=== PATIENT | male | born 1975 | race Caucasian/White ===

== ENCOUNTER 2017-06-11 02:13 | Emergency (ER) | payer BC, OTHER ==
--- NOTE | 2017-06-11 03:20 | EDM.PDOC ---
ED HPI GENERAL MEDICAL PROBLEM - General Chief Complaint: Respiratory Problem Stated Complaint: congested Time Seen by Provider: 06/11/17 03:20 Source of Information: Reports: Patient History Limitations: Reports: No Limitations - History of Present Illness INITIAL COMMENTS - FREE TEXT/NARRATIVE: The patient states that he has had fatigue, chest congestion, and nasal congestion for the past 2 days. His rhinorrhea is clear, occasionally yellow. He has an occasional dry cough. No recent fever. No recent nausea, vomiting, constipation, diarrhea, or urinary symptoms. No recent chest pain, palpitations , or dyspnea. No recent sore throat. He states that his appetite has been good. He states that he has been taking aspirin and/or Tylenol. The patient did receive an influenza vaccine this past fall. The patient's PCP is Dr. Guerrero. - Related Data Home Meds: Home Meds . [Unable to Verify Home Med List] 06/11/17 [History] Past Medical History HEENT History: Reports: Impaired Vision Other HEENT History: Wears glasses Cardiovascular History: Reports: High Cholesterol, Hypertension Endocrine/Metabolic History: Reports: Diabetes, Type II, Obesity/BMI 30+ - Past Surgical History HEENT Surgical History: Reports: Oral Surgery ([place] teeth extraction) Social & Family History - Tobacco Use Smoking Status *Q: Current Every Day Smoker Tobacco Use Within Last Twelve Months: Smokeless Tobacco (Chews 1.5 cans per week) Years of Tobacco use: 28 Packs/Tins Daily: 0.1 - Alcohol Use Alcohol Use History: Yes Alcohol Use Frequency: Socially - Recreational Drug Use Recreational Drug Use: No - Living Situation & Occupation Living situation: Reports: Single, Alone Occupation: Employed (Professor at [employer]) ED ROS GENERAL - Review of Systems Review Of Systems: ROS reveals no pertinent complaints other than HPI. ED EXAM, GENERAL - Physical Exam Exam: See Below Exam Limited By: No Limitations General Appearance: Alert, WD/WN, No Apparent Distress Eye Exam: Bilateral Eye: Normal Inspection Ears: Normal External Exam, Normal Canal, Hearing Grossly Normal, Normal TMs Nose: Normal Inspection, No Blood, Other (Moderate bilateral nasal mucosal edema with clear rhinorrhea) Throat/Mouth: Normal Inspection, Normal Lips, Normal Teeth, Normal Gums, Normal Oropharynx, Normal Voice, No Airway Compromise Head: Atraumatic, Normocephalic Neck: Normal Inspection, Supple, Non-Tender, Full Range of Motion. No: Lymphadenopathy (L), Lymphadenopathy (R) Respiratory/Chest: No Respiratory Distress, Lungs Clear, Normal Breath Sounds, No Accessory Muscle Use. No: Crackles, Rhonchi, Wheezing Cardiovascular: Normal Peripheral Pulses, Regular Rate, Rhythm, No Gallop, No JVD, No Murmur, No Rub Peripheral Pulses: 4+: Radial (L), Radial (R) GI/Abdominal: Normal Bowel Sounds, Soft, Non-Tender, No Organomegaly, No Distention, No Abnormal Bruit, No Mass, Other (Obese) (Male) Exam: Deferred Rectal (Males) Exam: Deferred Back Exam: Normal Inspection, Full Range of Motion, NT Extremities: Normal Inspection, Normal Range of Motion, No Pedal Edema, Normal Capillary Refill Neurological: Alert, Oriented, Normal Cognition, No Motor/Sensory Deficits Psychiatric: Normal Affect Skin Exam: Warm, Dry, Intact, Normal Color, No Rash Course - Vital Signs Last Recorded V/S: Last Vital Signs Temp 36.3 C 06/11/17 02:19 Pulse 89 06/11/17 02:19 Resp 18 06/11/17 02:19 BP 159/110 H 06/11/17 02:19 Pulse Ox 97 06/11/17 02:19 - Re-Assessments/Exams Free Text/Narrative Re-Assessment/Exam: 06/11/17 03:30 By history and physical examination, the patient has a viral URI with cough. His lungs are clear, but I offered to perform a chest radiograph, which the patient declined. As the patient has not had a fever, I do not see an indication for blood work. The patient is agreeable. Departure - Departure Time of Disposition: 03:31 Disposition: Home, Self-Care 01 Condition: Good Clinical Impression: Viral URI with cough - Discharge Information Instructions: Upper Respiratory Infection, Adult, [id number] Referrals: Ze Guerrero MD [Primary Care Provider] - Forms: ED Department Discharge Additional Instructions: You were seen in the emergency room for fatigue, nasal and chest congestion, and an occasional cough. A chest x-ray was offered, but declined. Based on your history and physical examination, you are MOST LIKELY suffering from a viral URI, also known as a common cold. Unfortunately, there are no medicines to get rid of a common cold - it will have to run its course. We do not recommend that you take any [id number] cough or cold remedies - they do not work, but do have side effects. Stay adequately hydrated. Follow-up with Dr. Guerrero as needed. If any other problems, please do not hesitate to return to the ER.
== END 2017-06-11 03:55 | disposition home or self-care (01) ==
LOC: JD.ED 02:13
DX: J06.9 Acute upper respiratory infection, unspecified (principal); E78.00 Pure hypercholesterolemia, unspecified; I10 Essential (primary) hypertension; F17.210 Nicotine dependence, cigarettes, uncomplicated; E11.9 Type 2 diabetes mellitus without complications; Z88.6 Allergy status to analgesic agent
CPT/HCPCS: 99282; 99283